=== PATIENT | male | born 1950 | race Caucasian/White ===

== ENCOUNTER 2019-07-23 09:17 | Outpatient (CLI) | payer OTHER, SELFPAY ==
--- NOTE | 2019-07-23 09:33 | ECG_ITS ---
Measurements Intervals [place] Rate: 91 P: 66 TX: 139 QRS: 9 QRSD: 96 T: 28 QT: 342 QTc: 421 Interpretive Statements SINUS RHYTHM NORMAL ECG Electronically Signed On 07-23-2019 10:19:37 CDT by Inocente Ramirez D.O.
== END 2019-07-23 09:18 | disposition home or self-care (01) ==
PROVIDERS: PCP Family Medicine; Visit Provider Family Medicine
DX: Z01.818 Encounter for other preprocedural examination (principal)
CPT/HCPCS: 93005